=== PATIENT | male | born 1980 | race Caucasian/White ===

== ENCOUNTER 2019-03-21 15:28 | Emergency (ER) | payer OTHER ==
[2019-03-21] MEDS ORDERED: NA CHLORIDE 0.9% 1,000 ML ONE (16:50)
[2019-03-21 16:57] LABS: Absolute Lymphocytes (CBC) 1.2 K/uL (0.7-4.9); Absolute Monocytes 1.4 K/uL (0.1-1.3); Absolute Neutrophil 5.1 K/uL (1.8-8.0); Basophils % 0.6 % (0-1.3); Eosinophils % 1.3 % (0-4.4); Hematocrit 45.7 % (39.6-49.0); Lymphocytes % 15.6 % (15.3-44.8); MPV 9.3 fL (7.6-11.3); Monocytes % 17.5 % (3.3-12.3); RBC Red Blood Cell Count 4.99 M/uL (4.33-5.43)
[2019-03-21 17:10] LABS: ALT/SGPT 25 U/L (12-78); AST/SGOT 26 U/L (15-37); Albumin 3.6 g/dL (3.4-5.0); Alkaline Phosphatase 72 U/L (45-117); BUN Blood Urea Nitrogen 17 mg/dL (7-18); Bicarbonate 26 mmol/L (21-32); Bilirubin Direct < 0.1 mg/dL (0-0.2); Bilirubin Total 0.4 mg/dL (0.2-1.0); Glucose Level 89 mg/dL (74-106); Lipase 106 U/L (73-393); Potassium 3.9 mmol/L (3.5-5.1); Sodium Level 139 mmol/L (136-145)
[2019-03-21 17:34] LABS: Urine Blood NEGATIVE (NEG); Urine Glucose NEGATIVE (NEG); Urine Protein 1+ (NEG); Urine Specific Gravity 1.025 (1.005-1.030); Urine pH 5.5 (5.0-7.0)
[2019-03-21] MEDS ORDERED: KETOROLAC 30 MG/ML INJ ONE (17:35)
[2019-03-21 17:43] LABS: Calcium Oxalate Crystals- Ur FEW (NONE SEEN); Urine Bacteria <20 /HPF (NONE SEEN); Urine Culture Reflex Order NOT NEEDED; Urine Mucus 1+ /HPF (NONE SEEN); Urine RBC NONE SEEN /HPF (NONE SEEN)
--- NOTE | 2019-03-21 18:23 | RAD REPORT ---
EXAM DESCRIPTION: CTAbdomen Pelvis W Contrast - 03/21/2019 6:11 pm CLINICAL HISTORY: Abdominal pain. ABD PAIN COMPARISON: No comparisons TECHNIQUE: Biphasic CT imaging of the abdomen and pelvis was performed with 100 ml non-ionic IV cont rast. All CT scans are performed using dose optimization technique as appropriate and may include automated exposure control or mA/KV adjustment according to patient size. FINDINGS: The lung bases are clear. The liver, spleen, pancreas, adrenal glands and kidneys are within normal limits. No bowel obstruction, free air, free fluid or abscess. Moderate wall thickening and inflammatory yepez ges involve the colon, particularly the cecum and ascending colon. No pneumatosis. Appendectomy. No evidence of significant lymphadenopathy. Hardware is present in the lumbar spine with postoperative changes. IMPRESSION: Moderate right-sided colitis.
--- NOTE | 2019-03-21 19:05 | EDPHYS ---
Physician Documentation [facility] Name: Shade Barth Jr Age: 38 yrs Sex: Male : 1980 Arrival Date: 03/21/2019 Time: 15:31 Bed 13 Private MD: ED Physician Desean Guthrie HPI: 03/21 16:41 This 38 yrs old Male presents to ER via Ambulatory with complaints of pm1 Abdominal Pain. 16:41 The patient presents with abdominal pain Suprapubic area. Onset: The symptoms/episode pm1 began/occurred 3 day(s) ago. The symptoms do not radiate. Associated signs and symptoms: Pertinent positives: subjective fever resolved , Pertinent negatives: nausea, vomiting, and diarrhea, chest pain, dysuria, shortness of breath, testicular pain. The symptoms are described as crampy. Modifying factors: The symptoms are alleviated by nothing, the symptoms are aggravated by nothing. Severity of pain: in the emergency department the pain has resolved. The patient has not experienced similar symptoms in the past. The patient has not recently seen a physician. Historical: - Allergies: 15:33 Morphine; hj - PMHx: 15:33 Hypertension; hj - PSHx: 15:33 spine surgery; hand surgery; Appendectomy; hj - Immunization history:: Adult Immunizations unknown. - Social history:: Smoking status: unknown. - Ebola Screening: : No symptoms or risks identified at this time. ROS: 16:41 Constitutional: Negative for fever, chills, and weight loss, Eyes: Negative for injury, pm1 pain, redness, and discharge, ENT: Negative for injury, pain, and discharge, Neck: Negative for injury, pain, and swelling, Cardiovascular: Negative for chest pain, palpitations, and edema, Respiratory: Negative for shortness of breath, cough, wheezing, and pleuritic chest pain. 16:41 Back: Negative for injury and pain, : Negative for injury, bleeding, discharge, and swelling, MS/Extremity: Negative for injury and deformity, Skin: Negative for injury, rash, and discoloration, Neuro: Negative for headache, weakness, numbness, tingling, and seizure. 16:41 Abdomen/GI: Positive for abdominal pain, Negative for nausea, vomiting, and diarrhea, constipation. Exam: 16:41 Constitutional: This is a well developed, well nourished patient who is awake, alert, pm1 and in no acute distress. Head/Face: Normocephalic, atraumatic. Eyes: Pupils equal round and reactive to light, extra-ocular motions intact. Lids and lashes normal. Conjunctiva and sclera are non-icteric and not injected. Cornea within normal limits. Periorbital areas with no swelling, redness, or edema. ENT: Nares patent. No nasal discharge, no septal abnormalities noted. Tympanic membranes are normal and external auditory canals are clear. Oropharynx with no redness, swelling, or masses, exudates, or evidence of obstruction, uvula midline. Mucous membranes moist. Neck: Trachea midline, no thyromegaly or masses palpated, and no cervical lymphadenopathy. Supple, full range of motion without nuchal rigidity, or vertebral point tenderness. No Meningismus. Chest/axilla: Normal chest wall appearance and motion. Nontender with no deformity. No lesions are appreciated. Cardiovascular: Regular rate and rhythm with a normal S1 and S2. No gallops, murmurs, or rubs. Normal PMI, no JVD. No pulse deficits. Respiratory: Lungs have equal breath sounds bilaterally, clear to auscultation and percussion. No rales, rhonchi or wheezes noted. No increased work of breathing, no retractions or nasal flaring. 16:41 Back: No spinal tenderness. No costovertebral tenderness. Full range of motion. Skin: Warm, dry with normal turgor. Normal color with no rashes, no lesions, and no evidence of cellulitis. MS/ Extremity: Pulses equal, no cyanosis. Neurovascular intact. Full, normal range of motion. 16:41 Abdomen/GI: Inspection: abdomen appears normal, Bowel sounds: normal, Palpation: abdomen is soft and non-tender, in all quadrants, mass, is not appreciated, rebound tenderness, is not appreciated. 16:41 Neuro: Orientation: is normal, Motor: is normal, moves all fours, Sensation: is normal, no obvious gross deficits, Gait: is steady, at a normal pace, without difficulty. Vital Signs: 15:33 BP 139 / 89; Pulse 95; Resp 18; Temp 98.2(TE); Pulse Ox 95% on R/A; Weight 101.15 kg; hj Height 6 ft. 1 in. (185.42 cm); Pain 10/10; 17:17 BP 120 / 72; Pulse 86; Resp 17; Pulse Ox 98% on R/A; sg 17:37 BP 117 / 77; Pulse 74; Resp 18; Temp 98.2; Pulse Ox 100% on R/A; sg 19:40 BP 113 / 75; Pulse 80; Resp 18; Temp 98; Pulse Ox 99% ; rv 15:33 Body Mass Index 29.42 (101.15 kg, 185.42 cm) hj MDM: 16:14 Patient medically screened. pm1 17:15 Data reviewed: vital signs. Data interpreted: Pulse oximetry: on room air is 95 %. pm1 Interpretation: normal. 19:03 Counseling: I had a detailed discussion with the patient and/or guardian regarding: the pm1 historical points, exam findings, and any diagnostic results supporting the discharge/admit diagnosis, lab results, radiology results, the need for outpatient follow up, to return to the emergency department if symptoms worsen or persist or if there are any questions or concerns that arise at home. 03/21 16:35 Order name: Basic Metabolic Panel; Complete Time: 17:11 pm1 03/21 16:35 Order name: CBC with Diff; Complete Time: 17:11 pm1 03/21 16:35 Order name: Creatinine for Radiology; Complete Time: 17:11 pm1 03/21 16:35 Order name: Hepatic Function; Complete Time: 17:11 pm1 03/21 16:35 Order name: Lipase; Complete Time: 17:11 pm1 03/21 16:35 Order name: Urine Microscopic Only; Complete Time: 17:44 pm03/21 16:35 Order name: CT Abd/Pelvis - W/Contrast; Complete Time: 18:40 pm1 03/21 17:21 Order name: Urine Dipstick--Ancillary (enter results); Complete Time: 17:44 eb 03/21 16:35 Order name: IV Saline Lock; Complete Time: 16:51 pm1 03/21 16:35 Order name: Labs collected and sent; Complete Time: 16:52 pm1 03/21 16:35 Order name: Urine Dipstick-Ancillary (obtain specimen); Complete Time: 16:52 pm1 Administered Medications: 16:56 Drug: NS 0.9% 1000 ml Route: IV; Rate: 1000 ml; Site: right antecubital; sg 17:50 Follow up: Response: No adverse reaction; IV Status: Completed infusion sg 17:22 Drug: TORadol 30 mg Route: IVP; Site: right antecubital; sg 17:55 Follow up: Response: No adverse reaction; Pain is unchanged, physician notified sg 19:10 Drug: Cipro 500 mg Route: PO; sg 19:42 Follow up: Response: No adverse reaction rv 19:10 Drug: Flagyl 500 mg Volume: 100 ml; Route: IVPB; Rate: 200 ml/hr; Infused Over: 30 sg mins; Site: right antecubital; 19:42 Follow up: IV Status: Completed infusion; IV Intake: 100ml rv 19:15 Drug: Bentyl 20 mg Route: PO; sg 19:43 Follow up: Response: No adverse reaction rv 19:19 Drug: fentaNYL (PF) 50 mcg Route: IVP; Site: right antecubital; sg 19:43 Follow up: Response: Pain is decreased rv Disposition: 03/22 11:57 Co-signature as Attending Physician, Desean Guthrie MD. Disposition: 03/21/19 19:04 Discharged to Home. Impression: Colitis. - Condition is Stable. - Discharge Instructions: Colitis. - Prescriptions for Flagyl 500 mg Oral Tablet - take 1 tablet by ORAL route every 8 hours for 10 days; 30 tablet. Cipro 500 mg Oral Tablet - take 1 tablet by ORAL route every 12 hours for 10 days; 20 tablet. Bentyl 20 mg Oral Tablet - take 1 tablet by ORAL route every 6 hours As needed; 20 tablet. - Medication Reconciliation Form, Thank You Letter, Antibiotic Education, Prescription Opioid Use form. - Follow up: Emergency Department; When: As needed; Reason: Worsening of condition. Follow up: Private Physician; When: 2 - 3 days; Reason: Recheck today's complaints, Continuance of care, Re-evaluation by your physician. - Problem is new. - Symptoms have improved. Signatures: Dispatcher [employer] EDMS Stephan Farley RN RN Selvin Wong RN RN Luis M Nicholson, MOTOR VEHICLE EXAMINER MOTOR VEHICLE EXAMINER pm1 Desean Guthrie MD MD William Cox RN RN rv Corrections: (The following items were deleted from the chart) 03/21 19:44 19:04 03/21/2019 19:04 Discharged to Home. Impression: Colitis. Condition is Stable. rv Forms are Medication Reconciliation Form, Thank You Letter, Antibiotic Education, Prescription Opioid Use. Follow up: Emergency Department; When: As needed; Reason: Worsening of condition. Follow up: Private Physician; When: 2 - 3 days; Reason: Recheck today's complaints, Continuance of care, Re-evaluation by your physician. Problem is new. Symptoms have improved. pm1
--- NOTE | 2019-03-21 19:05 | ER ---
Nurse's Notes [facility] Name: Shade Barth Jr Age: 38 yrs Sex: Male : 1980 Arrival Date: 03/21/2019 Time: 15:31 Bed 13 Private MD: Diagnosis: Colitis Presentation: 03/21 15:31 Presenting complaint: Patient states: hardy been having abd pain for 3 days now hj (suprapubic area); denies N/V; reports diarrhea; reports fever and chills;. Transition of care: patient was not received from another setting of care. Onset of symptoms was March 21, 2019. Risk Assessment: Do you want to hurt yourself or someone else? Patient reports no desire to harm self or others. Initial Sepsis Screen: Does the patient meet any 2 criteria? No. Patient's initial sepsis screen is negative. Does the patient have a suspected source of infection? No. Patient's initial sepsis screen is negative. Care prior to arrival: None. 15:31 Method Of Arrival: Ambulatory 15:31 Acuity: TESS 3 hj Historical: - Allergies: 15:33 Morphine; hj - PMHx: 15:33 Hypertension; hj - PSHx: 15:33 spine surgery; hand surgery; Appendectomy; hj - Immunization history:: Adult Immunizations unknown. - Social history:: Smoking status: unknown. - Ebola Screening: : No symptoms or risks identified at this time. Screenin:30 Abuse screen: Denies threats or abuse. Denies injuries from another. Nutritional sg screening: No deficits noted. Tuberculosis screening: No symptoms or risk factors identified. Never had TB. Fall Risk None identified. Assessment: 16:30 General: Appears in no apparent distress. uncomfortable, well groomed, well developed, sg well nourished, Behavior is calm, cooperative, appropriate for age. Pain: Complains of pain in abdomen Quality of pain is described as aching. Neuro: Level of Consciousness is awake, alert, obeys commands, Oriented to person, place, time, Speech is normal, Facial symmetry appears normal. Cardiovascular: Patient's skin is warm and dry. Respiratory: Airway is patent Respiratory effort is even, unlabored, Respiratory pattern is regular, symmetrical. GI: Abdomen is round obese, Bowel sounds present X 4 quads. Abd is soft and non tender X 4 quads. : No signs and/or symptoms were reported regarding the genitourinary system. EENT: No signs and/or symptoms were reported regarding the EENT system. Derm: Skin is pink, warm \T\ dry. Musculoskeletal: No signs and/or symptoms reported regarding the musculoskeletal system. 17:40 Reassessment: Patient appears in no apparent distress at this time. Patient and/or sg family updated on plan of care and expected duration. Pain level reassessed. Patient is alert, oriented x 3, equal unlabored respirations, skin warm/dry/pink. 18:40 Reassessment: Patient appears in no apparent distress at this time. Patient and/or sg family updated on plan of care and expected duration. Pain level reassessed. Patient is alert, oriented x 3, equal unlabored respirations, skin warm/dry/pink. Vital Signs: 15:33 BP 139 / 89; Pulse 95; Resp 18; Temp 98.2(TE); Pulse Ox 95% on R/A; Weight 101.15 kg; hj Height 6 ft. 1 in. (185.42 cm); Pain 10/10; 17:17 BP 120 / 72; Pulse 86; Resp 17; Pulse Ox 98% on R/A; sg 17:37 BP 117 / 77; Pulse 74; Resp 18; Temp 98.2; Pulse Ox 100% on R/A; sg 19:40 BP 113 / 75; Pulse 80; Resp 18; Temp 98; Pulse Ox 99% ; rv 15:33 Body Mass Index 29.42 (101.15 kg, 185.42 cm) ED Course: 15:31 Patient arrived in ED. hj 15:32 Triage completed. hj 15:34 Arm band placed on right wrist. hj 16:14 Luis M Nicholson NP is PHCP. pm1 16:14 Desean Guthrie MD is Attending Physician. pm1 16:27 Stephan Farley, DEBORAH is Primary Nurse. sg 16:40 Urine collected: clean catch specimen, checo colored. dh3 16:43 Initial lab(s) drawn, by ut, sent to lab. Inserted saline lock: 20 gauge in right dh3 forearm, using aseptic technique. Blood collected. 18:11 CT Abd/Pelvis - W/Contrast In Process Unspecified. EDMS 18:16 Patient [address] back from CT. sg 19:00 Patient has correct armband on for positive identification. Bed in low position. Call rv light in reach. Side rails up X 1. Pulse ox on. NIBP on. 19:41 No provider procedures requiring assistance completed. IV discontinued, intact, rv bleeding controlled, No redness/swelling at site. Pressure dressing applied. Administered Medications: 16:56 Drug: NS 0.9% 1000 ml Route: IV; Rate: 1000 ml; Site: right antecubital; sg 17:50 Follow up: Response: No adverse reaction; IV Status: Completed infusion sg 17:22 Drug: TORadol 30 mg Route: IVP; Site: right antecubital; sg 17:55 Follow up: Response: No adverse reaction; Pain is unchanged, physician notified sg 19:10 Drug: Cipro 500 mg Route: PO; sg 19:42 Follow up: Response: No adverse reaction rv 19:10 Drug: Flagyl 500 mg Volume: 100 ml; Route: IVPB; Rate: 200 ml/hr; Infused Over: 30 sg mins; Site: right antecubital; 19:42 Follow up: IV Status: Completed infusion; IV Intake: 100ml rv 19:15 Drug: Bentyl 20 mg Route: PO; sg 19:43 Follow up: Response: No adverse reaction rv 19:19 Drug: fentaNYL (PF) 50 mcg Route: IVP; Site: right antecubital; sg 19:43 Follow up: Response: Pain is decreased rv Intake: 19:42 IV: 100ml; Total: 100ml. rv Outcome: 19:04 Discharge ordered by MD. pm1 19:42 Discharged to home ambulatory. rv 19:42 Condition: good 19:42 Discharge instructions given to patient, family, Instructed on discharge instructions, follow up and referral plans. medication usage, Demonstrated understanding of instructions, follow-up care, medications, Prescriptions given X 3. 19:44 Patient left the ED. rv Signatures: Dispatcher [employer] EDMS Stephan Farley RN RN Selvin Wong RN RN hj Luis M Nicholson NP ROTARY ENGRAVER pm1 Taylor Hurst 3 William Cox RN RN rv Corrections: (The following items were deleted from the chart) 15:35 15:33 Pulse 95bpm; Resp 18bpm; Pulse Ox 95% RA; Temp 98.2F Temporal; 101.15 kg; Height hj 6 ft. 1 in.; BMI: 29.4; Pain 10/10; hj
[2019-03-21] MEDS ORDERED: CIPROFLOXACIN HCL 500 MG TAB ONE (19:12)
[2019-03-21] MEDS ORDERED: DICYCLOMINE HCL 10 MG CAP ONE (19:12)
[2019-03-21] MEDS ORDERED: METRONIDAZOLE 500mg IVPB 500 MG/100 ML BAG IV ONE (19:12)
[2019-03-21] MEDS ORDERED: FENTANYL CITR 100 MCG/2 ML ONE (19:24)
== END 2019-03-21 19:44 | disposition home or self-care (01) ==
LOC: ER 15:28
DX: K52.9 Noninfective gastroenteritis and colitis, unspecified (principal); Z88.6 Allergy status to analgesic agent
CPT/HCPCS: 36415; 74177; 80048; 80076; 81003; 81015; 83690; 85025; 96361; 96365; 96375; 99284; J3010; J7030; Q9967

== ENCOUNTER 2021-05-16 21:33 | Emergency (ER) | payer OTHER, BC ==
--- OUTSIDE RECORDS SUMMARY | 2021-05-16 21:36 | XMS REPORT | Continuity of Care Document ---
:1980 Author Organization [facility] t Address [address] [place] [address] Dr. Peters [address] [place] [id number] Care Team Providers Name Role Phone Wyatt Burns Attending Clinician Problems This patient has no known problems. Allergies, Adverse Reactions, Alerts This patient has no known allergies or adverse reactions. Medications This patient has no known medications. Procedures This patient has no known procedures. Encounters Start End Encounter Admission Attending Care Care Encounter Source Date/Time Date/Time Type Type Clinicians Facility Department ID 2021-01-22 2021-01-22 Emergency Tye [facility] [id number] 18:16:00 22:10:00 Yuval Michelle [id number] [place] [id number] [place] [id number] Results This patient has no known results.
[2021-05-16 22:31] LABS: Basophils % 0.7 % (0-1.3); Hematocrit 39.7 % (39.6-49.0); Lymphocytes % 16.8 % (15.3-44.8); MPV 9.3 fL (7.6-11.3); RBC Red Blood Cell Count 4.37 M/uL (4.33-5.43)
[2021-05-16] MEDS ORDERED: HYDROMORPHONE HCL 1 MG/ML INJ ONE (22:52)
[2021-05-16] MEDS ORDERED: NA CHLORIDE 0.9% 1,000 ML ONE (22:52)
[2021-05-16] MEDS ORDERED: ONDANSETRON 4 MG/2 ML VIAL ONE (22:52)
[2021-05-16 22:57] LABS: ALT/SGPT 43 U/L (12-78); AST/SGOT 40 U/L (15-37); Albumin 3.1 g/dL (3.4-5.0); Alkaline Phosphatase 74 U/L (45-117); BUN Blood Urea Nitrogen 13 mg/dL (7-18); Bicarbonate 28 mmol/L (21-32); Bilirubin Direct < 0.1 mg/dL (0-0.2); Bilirubin Total 0.3 mg/dL (0.2-1.0); Glucose Level 111 mg/dL (74-106); Potassium 3.7 mmol/L (3.5-5.1); Protein, Total 6.4 g/dL (6.4-8.2); Sodium Level 139 mmol/L (136-145)
[2021-05-16 22:58] LABS: Protime INR 1.01
[2021-05-16 23:00] LABS: Urine Blood Negative (Negative); Urine Glucose Negative (Negative); Urine Protein Negative (Negative)
[2021-05-16 23:46] LABS: Blood Morphology Comment NOT SEEN (NOT SEEN); Platelet Estimate ADEQ
[2021-05-17] MEDS ORDERED: FENTANYL CITR 100 MCG/2 ML ONE (00:33)
--- NOTE | 2021-05-17 02:08 | EDPHYS ---
Physician Documentation [facility] Name: Shade Barth Jr Age: 41 yrs Sex: Male : 1980 Arrival Date: 05/16/2021 Time: 21:34 Bed 14 Private MD: ED Physician Jesse Naranjo HPI: 05/16 22:31 This 41 yrs old Male presents to ER via Wheelchair with complaints of Fever, mh7 Incisional Pain. 22:32 Patient presents to ED for recheck of: Pain at surgical site. The affected area is on mh7 the left hip. Previous treatment: The patient was initially treated 2 day(s) ago, the care was rendered at outside hospital, Treatment type: The patient's original treatment included sacral fusion surgery. Outpatient prescription(s): The patient was given prescription(s) for hydrocodone, Fentanyl Patch. Progress: The patient reports increased fever, redness. Historical: - Allergies: 21:43 Morphine; ca1 21:43 Sulfa (Sulfonamide Antibiotics); ca1 - PMHx: 21:43 Hypertension; ca1 - Immunization history:: Client reports receiving the 2nd dose of the Covid vaccine, Client reports receiving the 1st dose of the Covid vaccine, Flu vaccine is up to date. - Social history:: Smoking status: Reported history of juuling and/or vaping. ROS: 22:32 Eyes: Negative for injury, pain, redness, and discharge, ENT: Negative for injury, mh7 pain, and discharge, Neck: Negative for injury, pain, and swelling, Cardiovascular: Negative for chest pain, palpitations, and edema, Respiratory: Negative for shortness of breath, cough, wheezing, and pleuritic chest pain, Abdomen/GI: Negative for abdominal pain, nausea, vomiting, diarrhea, and constipation, Back: Negative for injury and pain, : Negative for injury, bleeding, discharge, and swelling, Neuro: Negative for headache, weakness, numbness, tingling, and seizure, Psych: Negative for depression, anxiety, suicide ideation, homicidal ideation, and hallucinations, Allergy/Immunology: Negative for hives, rash, and allergies, Endocrine: Negative for neck swelling, polydipsia, polyuria, polyphagia, and marked weight changes, Hematologic/Lymphatic: Negative for swollen nodes, abnormal bleeding, and unusual bruising. Exam: 22:32 Constitutional: This is a well developed, well nourished patient who is awake, alert, mh7 and in no acute distress. Head/Face: Normocephalic, atraumatic. Eyes: Pupils equal round and reactive to light, extra-ocular motions intact. Lids and lashes normal. Conjunctiva and sclera are non-icteric and not injected. Cornea within normal limits. Periorbital areas with no swelling, redness, or edema. Neck: Trachea midline, no thyromegaly or masses palpated, and no cervical lymphadenopathy. Supple, full range of motion without nuchal rigidity, or vertebral point tenderness. No Meningismus. Chest/axilla: Normal chest wall appearance and motion. Nontender with no deformity. No lesions are appreciated. 22:32 Respiratory: Lungs have equal breath sounds bilaterally, clear to auscultation and percussion. No rales, rhonchi or wheezes noted. No increased work of breathing, no retractions or nasal flaring. Abdomen/GI: Soft, non-tender, with normal bowel sounds. No distension or tympany. No guarding or rebound. No evidence of tenderness throughout. Neuro: Awake and alert, GCS 15, oriented to person, place, time, and situation. Cranial nerves II-XII grossly intact. Motor strength 5/5 in all extremities. Sensory grossly intact. Cerebellar exam normal. Normal gait. Psych: Awake, alert, with orientation to person, place and time. Behavior, mood, and affect are within normal limits. 22:32 Cardiovascular: Rate: tachycardic, Rhythm: regular, Pulses: no pulse deficits are appreciated, Heart sounds: normal, normal S1and S2, Edema: is not appreciated, JVD: is not appreciated. 22:32 Musculoskeletal/extremity: Extremities: noted in the left hip and buttock: ecchymosis, mh7 pain, tenderness, ROM: intact in all extremities, Circulation is intact in all extremities. Sensation intact. Compartment Syndrome exam of affected extremity: is normal. no numbness, no tingling, no sensation deficit, no palor, no weak pulses, Joints: the left hip displays tenderness, ecchymosis, Weight bearing: able to fully bear weight, without difficulty, Tendon exam: specific tendon testing normal through active and passive range of motion DVT Exam: no pain, no swelling, no tenderness, negative Homans' sign noted on exam, no appreciated bluish discoloration, no erythema, no increased warmth, Calves: are non-tender, have equal circumference. 05/17 02:10 Musculoskeletal/extremity: Surgical wound is clean,dry, intact. No erythema, swelling, mh7 discharge.. Vital Signs: 05/16 21:41 BP 154 / 89; Pulse 117; Resp 20; Temp 99.5(O); Pulse Ox 95% on R/A; Weight 106.14 kg ca1 (R); Height 6 ft. 1 in. (185.42 cm) (R); Pain 7/10; 22:45 BP 118 / 68; Pulse 91; Resp 16; Pulse Ox 96% on R/A; jb4 05/17 00:00 BP 124 / 77; Pulse 0; Resp 18; Pulse Ox 97% on R/A; jb4 01:00 BP 108 / 64; Pulse 78; Resp 16; Pulse Ox 96% on R/A; jb4 02:00 BP 119 / 59; Pulse 93; Resp 17; Pulse Ox 97% on R/A; jb4 05/16 21:41 Body Mass Index 30.87 (106.14 kg, 185.42 cm) ca1 MDM: 05/16 22:32 Counseling: I had a detailed discussion with the patient and/or guardian regarding: the [facility] historical points, exam findings, and any diagnostic results supporting the discharge/admit diagnosis, the presence of at least one elevated blood pressure reading (>120/80) during this emergency department visit, lab results, radiology results, the need for outpatient follow up, to return to the emergency department if symptoms worsen or persist or if there are any questions or concerns that arise at home. Response to treatment: the patient's symptoms have resolved after treatment, the patient's blood pressure is in an acceptable range, mental status has returned to baseline, the patient no longer shows bradycardia, the patient is not short of breath, the patient is not tachycardic, the patient's pain is gone, the patient's temperature has normalized. 05/17 02:03 Differential diagnosis: cellulitis, post surgical pain, abscess, post operative mh7 infection. Data reviewed: vital signs, nurses notes, lab test result(s), CBC, electrolytes, urinalysis, radiologic studies, CT scan, plain films. 02:08 Patient medically screened. [facility] 05/16 22:16 Order name: CBC with Diff [facility] 05/16 22:16 Order name: Basic Metabolic Panel [facility] 05/16 22:16 Order name: LFT's [facility] 05/16 22:16 Order name: Protime (+inr); Complete Time: 23:06 [facility] 05/16 22:16 Order name: Ptt, Activated; Complete Time: 23:06 [facility] 05/16 22:16 Order name: Lactate; Complete Time: 23:53 [facility] 05/16 22:16 Order name: Blood Culture Adult (2) [facility] 05/16 22:16 Order name: Chest Single View XRAY [facility] 05/16 22:16 Order name: CBC with Automated Diff; Complete Time: 23:53 [facility] 05/16 22:17 Order name: Basic Metabolic Panel; Complete Time: 23:06 [facility] 05/16 22:17 Order name: Liver (Hepatic) Function; Complete Time: 23:06 [facility] 05/16 22:55 Order name: Manual Differential; Complete Time: 23:53 [facility] 23:00 Order name: Urine Dipstick-Ancillary; Complete Time: 23:06 [facility] 05/16 22:16 Order name: Urine Dipstick-Ancillary (obtain specimen); Complete Time: 23:00 [facility] 05/17 00:39 Order name: Pelvis W/Cont EDMS Administered Medications: 05/16 22:42 Drug: NS 0.9% 1000 ml Route: IV; Rate: 1000 ml; Site: right antecubital; [facility] 23:25 Follow up: Response: No adverse reaction; IV Status: Completed infusion; IV Intake: jb4 1000ml 22:45 Drug: Zofran (Ondansetron) 4 mg Route: IVP; Site: right forearm; jb4 23:15 Follow up: Response: No adverse reaction; Marked relief of symptoms jb4 22:46 Drug: Dilaudid (HYDROmorphone) 1 mg Route: IVP; Site: right forearm; jb4 23:15 Follow up: Response: No adverse reaction; Pain is decreased; RASS: Alert and Calm (0) [facility] 05/17 00:15 Drug: fentaNYL (PF) 50 mcg Route: IVP; Site: right forearm; jb4 00:45 Follow up: Response: No adverse reaction; Marked relief of symptoms; Pain is decreased; 4 RASS: Alert and Calm (0) Disposition Summary: 05/17/21 02:08 Discharge Ordered Location: Home [facility] Problem: new [facility] Symptoms: have improved mh Condition: Stable mh7 Diagnosis - Post Operative Pain [facility] Followup: [facility] - With: Private Physician - When: 1 - 2 days - Reason: Worsening of condition, Recheck today's complaints, Continuance of care, Re-evaluation by your physician Discharge Instructions: - Discharge Summary Sheet [facility] - Wound Care, Adult [facility] Forms: - Medication Reconciliation Form [facility] - Thank You Letter [facility] - Antibiotic Education [facility] - Prescription Opioid Use [facility] Signatures: Dispatcher [employer] EDMO Colby Johnson RN RN jb4 Madeline Aly RN RN ca1 Jesse Naranjo MD MD mh7 Corrections: (The following items were deleted from the chart) 05/16 23:13 23:08 Spine Lumbar Wo Con+CT.RAD.BRZ ordered. EDMO EDMO 05/17 00:39 05/16 23:13 Spine Lumbar W/Cont ordered. EDMO EDMO 05/17 02:10 02:08 Fever, unspecified [place] [id number]
--- NOTE | 2021-05-17 02:08 | ER ---
Nurse's Notes [facility] Name: Shade Barth Jr Age: 41 yrs Sex: Male : 1980 Arrival Date: 05/16/2021 Time: 21:34 Bed 14 Private MD: Diagnosis: Post Operative Pain Presentation: 05/16 21:41 Chief complaint: Patient states: Sacral Fusion done Monday. Been having pain at the ca1 incision. Fever x this evening. Took pain meds with acetaminophen. Fever at home 101. Coronavirus screen: Client denies travel out of the [place] in the last 14 days. fever, Client presents with at least one sign or symptom that may indicate coronavirus-19. Standard/surgical mask placed on the client. Provider contacted for isolation considerations. Ebola Screen: Patient negative for fever greater than or equal to 101.5 degrees Fahrenheit, and additional compatible Ebola Virus Disease symptoms Patient denies exposure to infectious person. Patient denies travel to an Ebola-affected area in the 21 days before illness onset. No symptoms or risks identified at this time. Initial Sepsis Screen: Does the patient meet any 2 criteria? No. Patient's initial sepsis screen is negative. Does the patient have a suspected source of infection? No. Patient's initial sepsis screen is negative. Risk Assessment: Do you want to hurt yourself or someone else? Patient reports no desire to harm self or others. Onset of symptoms was May 16, 2021. 21:41 Method Of Arrival: Wheelchair ca1 21:41 Acuity: TESS 3 ca1 Historical: - Allergies: 21:43 Morphine; ca1 21:43 Sulfa (Sulfonamide Antibiotics); ca1 - PMHx: 21:43 Hypertension; ca1 - Immunization history:: Client reports receiving the 2nd dose of the Covid vaccine, Client reports receiving the 1st dose of the Covid vaccine, Flu vaccine is up to date. - Social history:: Smoking status: Reported history of juuling and/or vaping. Assessment: 22:00 General: Appears in no apparent distress. uncomfortable, Behavior is calm, cooperative, jb4 appropriate for age. Pain: Complains of pain in left low back Pain radiates to left hip Pain currently is 8 out of 10 on a pain scale. Neuro: Level of Consciousness is awake, alert, obeys commands, Oriented to person, place, time, situation. Cardiovascular: Patient's skin is warm and dry. Respiratory: Airway is patent Respiratory effort is even, unlabored, Respiratory pattern is regular, symmetrical. GI: No signs and/or symptoms were reported involving the gastrointestinal system. : No signs and/or symptoms were reported regarding the genitourinary system. EENT: No signs and/or symptoms were reported regarding the EENT system. Derm: Skin is intact, Skin is pink, warm \T\ dry. Musculoskeletal: Circulation, motion, and sensation intact. Range of motion: intact in all extremities. 23:30 Reassessment: Patient appears in no apparent distress at this time. Patient and/or jb4 family updated on plan of care and expected duration. Pain level reassessed. Patient is alert, oriented x 3, equal unlabored respirations, skin warm/dry/pink. Patient states symptoms have not improved. 05/17 00:45 Reassessment: Patient appears in no apparent distress at this time. Patient and/or jb4 family updated on plan of care and expected duration. Pain level reassessed. Patient is alert, oriented x 3, equal unlabored respirations, skin warm/dry/pink. Patient states feeling better. 02:14 Reassessment: Patient appears in no apparent distress at this time. Patient and/or jb4 family updated on plan of care and expected duration. Pain level reassessed. Patient is alert, oriented x 3, equal unlabored respirations, skin warm/dry/pink. Vital Signs: 05/16 21:41 BP 154 / 89; Pulse 117; Resp 20; Temp 99.5(O); Pulse Ox 95% on R/A; Weight 106.14 kg ca1 (R); Height 6 ft. 1 in. (185.42 cm) (R); Pain 7/10; 22:45 BP 118 / 68; Pulse 91; Resp 16; Pulse Ox 96% on R/A; jb4 05/17 00:00 BP 124 / 77; Pulse 0; Resp 18; Pulse Ox 97% on R/A; jb4 01:00 BP 108 / 64; Pulse 78; Resp 16; Pulse Ox 96% on R/A; jb4 02:00 BP 119 / 59; Pulse 93; Resp 17; Pulse Ox 97% on R/A; jb4 05/16 21:41 Body Mass Index 30.87 (106.14 kg, 185.42 cm) ca1 ED Course: 05/16 21:34 Patient arrived in ED. am4 21:43 Triage completed. ca1 21:43 Arm band placed on right wrist. ca1 21:54 Jesse Naranjo MD is Attending Physician. 7 22:25 Colby Johnson, RN is Primary Nurse. jb4 22:51 Chest Single View XRAY In Process Unspecified. EDMS 05/17 01:01 Pelvis W/Cont In Process Unspecified. EDMS Administered Medications: 05/16 22:42 Drug: NS 0.9% 1000 ml Route: IV; Rate: 1000 ml; Site: right antecubital; jb4 23:25 Follow up: Response: No adverse reaction; IV Status: Completed infusion; IV Intake: jb4 1000ml 22:45 Drug: Zofran (Ondansetron) 4 mg Route: IVP; Site: right forearm; jb4 23:15 Follow up: Response: No adverse reaction; Marked relief of symptoms jb4 22:46 Drug: Dilaudid (HYDROmorphone) 1 mg Route: IVP; Site: right forearm; jb4 23:15 Follow up: Response: No adverse reaction; Pain is decreased; RASS: Alert and Calm (0) jb4 05/17 00:15 Drug: fentaNYL (PF) 50 mcg Route: IVP; Site: right forearm; jb4 00:45 Follow up: Response: No adverse reaction; Marked relief of symptoms; Pain is decreased; jb4 RASS: Alert and Calm (0) Intake: 05/16 23:25 IV: 1000ml; Total: 1000ml. jb4 Outcome: 05/17 02:08 Discharge ordered by . [facility] 02:25 Patient left the ED. jb4 Signatures: Dispatcher [employer] EDMS Colby Johnson, DEBORAH CABRERA jb4 Madeline Aly RN RN ca1 Jesse Naranjo MD MD mh7 Martinez, Ashley 4
[2021-05-17 02:52] VITALS: TEMP 99.5
[2021-05-17 02:57] VITALS: BP 119/59; O2SAT 97
--- NOTE | 2021-05-17 08:36 | RAD REPORT ---
EXAM DESCRIPTION: RAD - Chest Single View - 05/16/2021 10:51 pm CLINICAL HISTORY: FEVER Chest pain. COMPARISON: No comparisons FINDINGS: Portable technique limits examination quality. Mild linear atelectasis suspected left lung base. The lungs are otherwise clear. The heart is normal in size. No displaced fractures.
--- NOTE | 2021-05-17 13:43 | RAD REPORT ---
EXAM DESCRIPTION: Pelvis W/Cont 05/17/2021 1:20 AM CDT CLINICAL HISTORY: 41 years, Male, s/p sacral fusion;Pain POST-OP COMPARISON: None. TECHNIQUE: Multiple transaxial tomograms of the pelvis were obtained utilizing 2 mm slice thickness at 2 mm interval reconstruction after the administration of IV contrast. 2-D multiplanar reformats in sagittal and coronal plane were generated and reviewed. This exam was performed according to our departmental dose-optimization protocol, which includes auto mated exposure control, adjustment of the mA and/or kV according to patient size and/or use of iterat hardy reconstruction technique. FINDINGS: The visualized portions of the large and small bowel demonstrate to be within normal limit s. There is minimal diverticulosis within the left site colon. The urinary bladder is unremarkable. T he prostate gland is normal. There is no evidence for pelvic lymphadenopathy and/or ascites. Small le ft inguinal hernia containing omentum. The visualized portions of the external genitalia demonstrate to be within normal limits. There is minimal haziness within the left lateral gluteal region perhaps suggesting the possibility of edema and/or cellulitis and/or prior trauma. Bone windows demonstrate no evidence for acute bony injuries. The pelvic bones, superior and inferior pubic, demonstrate to be normal. The hip joints, proximal aspect of the femurs demonstrate to be wit hin normal limits. Well-circumscribed tiny sclerotic lesion within the left femoral head correspondin g to most likely a bone island. There is status post posterior transpedicular fixation device with intervertebral disc cage at L5/S1 disc level. There are bilateral sacroiliac joint fusion with 3 anchoring screws bilaterally. There is no evidence for periosteal reaction. There is no evidence for significant lucencies. There is no tavon dence for abnormal areas of enhancement. IMPRESSION: Status post posterior transpedicular fixation device with intervertebral disc cage at L5 /S1 disc level. Bilateral sacroiliac joint fusion with 3 anchoring screws bilaterally. Minimal haziness within the left lateral gluteal region perhaps suggesting the possibility of edema a nd/or cellulitis and/or prior trauma. Small left inguinal hernia containing omentum. Electronically signed by: Gm Ramirez MD 05/17/2021 1:26 AM CDT Due to temporary technical issues with the PACS/Fluency reporting system, reports are being signed by the in house radiologist without review as a courtesy to ensure prompt reporting. The interpreting r adiologist is fully responsible for the content of the report.
== END 2021-05-17 02:25 | disposition home or self-care (01) ==
LOC: ER 21:33
DX: G89.18 Other acute postprocedural pain (principal); I10 Essential (primary) hypertension; Z88.2 Allergy status to sulfonamides; Z88.5 Allergy status to narcotic agent
CPT/HCPCS: 96361; 87040 ×2; 85025; 80048; 36415; 85610; 80076; 83605; 85730; 81003; 72193; 71045; 96375; 96374; 99283; Q9967; J3010; J1170; J7030; J2405

== ENCOUNTER 2022-02-22 16:36 | Emergency (ER) | payer BC, OTHER ==
--- OUTSIDE RECORDS SUMMARY | 2022-02-22 16:39 | XMS REPORT | Continuity of Care Document ---
:1980 Author Organization [facility] t Address [address] [place] [address] Dr. Peters [address] [place] [id number] Care Team Providers Name Role Phone Wyatt Burns Attending Clinician Wyatt CHARLTON Attending Clinician Unavailable Payers Payer Name Policy Type Policy Number Effective Date Expiration Date S ource Problems Condition Condition Condition Status Onset Resolution Last Treating Co mments Source Name Details Category Date Date Treatment Clinician Date No known No known Disease Unive rs active active ity of problems problems [facility] Allergies, Adverse Reactions, Alerts Allergy Allergy Status Severity Reaction(s) Onset Inactive Treating Comm ents Source Name Type Date Date Clinician Morphine Propensi Active Anaphylaxis 0 U nivers ty to - ity of adverse 00:00: [place] reaction 00 Medical s Branch Sulfa Propensi Active Unknown - 0 Unive rs Dyne ty to See comments 01-22 ity of adverse 00:00: [place] reaction 00 Medical s Branch MORPHINE DRUG Active Anaphylaxis 0 Uni vers INGREDI 01-22 ity of 00:00: [place] 00 Medical Branch SULFA DRUG Active Unknown-Cmnt 0 Univ ers DYNE - ity of 00:00: [place] 00 [facility] Social History Social Habit Start Date Stop Date Quantity Comments Source Exposure to Not sure [facility] SARS-CoV-2 (event) Medica l Branch Sex Assigned At [birth year] [facility] 00:00:00 00:00:00 Medical [place] Smoking Status Start Date Stop Date Source Unknown if ever smoked [facility] Medications Ordered Filled Start Stop Current Ordering Indication Dosage Frequency Signature Comments Components Source Medication Medication Date Date Medication? Clinician (SIG) Name Name clindamycin 2022020- No 600mg 600 mg, IV Univers (CLEOCIN) 01-23 Piggyback, ity of injection 03:15: 02:26 ONCE, 1 [place] 600 mg 00 :00 dose, Fri Medical 01/22/21 at Branch 2215, THUY
Re ason for Anti-Infec tive: Documented Infection< br>Documen domingo Infection Site: Skin / Soft Tissue
Duration of Therapy: 7 days
Re stricted use approved by: ED PROVIDER<b r>Indicati on for Clindamyci n use: abscess ondansetron 2020- No 4mg 4 mg, Slow Univers (ZOFRAN 01-23 IV Push, ity of (PF)) 03:00: 01:51 ONCE, 1 [place] injection 4 00 :00 dose, Fri Med ical mg 01/22/21 at Branch 2200, THUY FENTanyl PF 2020- No 50ug 50 mcg, Un josee (SUBLIMAZE 01-23 Slow IV ity o f (PF)) 01:51: 01:51 Push, [place] injection 00 :00 ONCE, 1 Medical 50 mcg dose, Fri [place] 01/22/21 at 2100, STAT iohexol 2020- No [id number] 120mL 120 mL, Univers (OMNIPAQUE 01-23 Intravenou it y of 350 01:15: 00:52 s, ONCE, 1 [place] BULK-150 00 :00 dose, Fri Medica l mL) 01/22/21 at [place] injection 2015, 120 mL Routine acetaminoph 2020- No 1000mg 1,000 mg, Univers en 01-23 Oral, ity of (TYLENOL) 00:45: 00:04 ONCE, 1 [place] tablet 00 :00 dose, Fri Medical 1,000 mg 01/22/21 at [facility] h 1945, Routine acetaminoph Yes [id number] 1{tbl} Take 1 Un josee en-codeine 01-22 tablet by ity of 300-30 mg 00:00: mouth [place] tablet 00 every 4 Medical (four) Branch hours as needed for Pain (scale 7-10). Indication s: acute pain clindamycin 2020- No [id number] 300mg Take 1 Univers 300 mg 01-22 capsule by ity of capsule 00:00: 04:59 mouth 4 [place] 00 :00 (four) Medical times [place] daily for 7 days. Vital Signs Vital Name Observation Time Observation Value Comments Source Systolic blood 2021-01-23 01:00:00 124 mm[Hg] Univer sity of pressure [facility] Diastolic blood 2021-01-23 01:00:00 68 mm[Hg] Unive rsity of [facility] Heart rate 2021-01-23 01:00:00 81 /min Universi [facility] Respiratory rate 2021-01-23 01:00:00 17 /min [facility] saturation in 2021-01-23 01:00:00 98 /min University of Arterial blood by [facility] Pulse oximetry Branch Body temperature 2021-01-22 23:14:00 36.72 Maureen [facility] Body weight 2021-01-22 23:14:00 102.513 kg [facility] Systolic blood 2021-01-23 01:00:00 124 mm[Hg] Univer sity of [facility] Diastolic blood 2021-01-23 01:00:00 68 mm[Hg] Unive rsity of [facility] Heart rate 2021-01-23 01:00:00 81 /min [facility] Respiratory rate 2021-01-23 01:00:00 17 /min [facility] Oxygen saturation in 2021-01-23 01:00:00 98 /min University of Arterial blood by [facility] Pulse oximetry Branch Body temperature 2021-01-22 23:14:00 36.72 Maureen [facility] ersity [facility] Body weight 2021-01-22 23:14:00 102.513 kg [facility] Procedures Procedure Date / Time Performed Performing Clinician Sour e INCISION AND DRAINAGE 2021-01-23 02:15:00 [facility]EL[facility]AST 2021-01-23 01:05:28 [facility] BASIC METABOLIC PANEL 2021-01-23 00:04:00 Yuval Charlton [facility] [place] (NA, K, CL, CO2, Medical Branch GLUCOSE, BUN, CREATININE, CA) CBC WITH DIFF 2021-01-23 00:04:00 Yuval Charlton [facility] NOTICE OF PRIVACY 2021-01-22 23:12:11 Doctor Unassigned, No [facility] Name Medical Branch CONSENT/REFUSAL FOR 2021-01-22 23:10:07 Doctor Unassigned, No [facility] [place] DIAGNOSIS AND Name Medical Branch TREATMENT CONSENT/REFUSAL FOR 2021-01-22 23:10:06 Doctor Unassigned, No [facility] [place] DIAGNOSIS AND Name Medical Branch TREATMENT Encounters Start End Encounter Admission Attending Care Care Encounter Source Date/Time Date/Time Type Type Clinicians Facility Department ID 2021-01-22 2021-01-22 Emergency [facility] [id number] [facility] 18:16:00 22:10:00 [id number] [id number] [place] [address] Branch 2021-01-22 2021-01-22 Emergency [facility] [id number] 18:16:00 22:10:00 Yuval Michelle [id number] [place] [id number] [place] [id number] 2021-01-22 2021-01-22 Emergency X [facility] ERT [id number] [facility] 18:16:00 18:16:00 General acute hospital Results Test Description Test Time Test Comments Results Result Comments Source BASIC METABOLIC PANEL (NA, K, CL, CO2, GLUCOSE, BUN, 2021-01 00:32:35 CREATININE, CA) Test Item Value Reference Range Interpretation Comme nts NA (test code = 8034297843) 139 mmol/L 135-145 K (test code = 0929637489) 4.0 mmol/L 3.5-5.0 CL (test code = 3080447582) 103 mmol/L 98-108 CO2 TOTAL (test code = 28 mmol/L 23-31 2620744759) AGAP (test code = 9349813595) 2-16 BUN (test code = 4989760151) 20 mg/dL 7-23 GLUCOSE (test code = 0639873039) 105 mg/dL 70-110 CREATININE (test code = 0.92 mg/dL 0.60-1.25 2584103409) CALCIUM (test code = 7700865146) 8.7 mg/dL 8.6-10.6 eGFR Calculation (Non- mL/min/1.73m2 Algerian) (test code = 7823491902) eGFR Calculation ( mL/min/1.73m2 Algerian) (test code = 0343462776) ANTONIETA (test code = ANTONIETA) Association of Glomerular Filtration Rate (GFR) and Staging of Kidney Disease* + +--------- + ----+| GFR (mL/min/1.73 m2) ?| With Kidney Damage ?| ?Without Kidney Damage+ +--- + +| ?>90 ?| ?Stage one ?| ? Normal ?+ +-------- + -----+| ?60-89 ?| ?Stage two ?| ? Decreased GFR ? + +--------- + ----+| ?30-59 ?| ?Stage three ?| ? Stage three ? + +--------- + ----+| ?15-29 ?| ?Stage four ? | ? Stage four ?+ +-------- + -----+| ?<15 (or dialysis) ? ?| ?Stage five ? | ? Stage five ?+ +-------- + -----+ *Each stage assumes the associated GFR level has been in effect for at least three months. ?Stages 1 to 5, with or without kidney disease, indicate chronic kidney disease. Notes: Determination of stages one and two (with eGFR >59mL/min/1.73 m2) requires estimation of kidney damage for at least three months as defined by structural or functional abnormalities of the kidney, manifested by either:Pathological abnormalities or Markers of kidney damage (including abnormalities in the composition of the blood or urine or abnormalities in imaging tests). [facility] WITH [id number] 00:21:54 Test Item Value Reference Range Interpretation Comments WBC (test code = See_Comment [Automated 6690-2) message] The sy stem which generated this result transmitted reference range : 4.20 - 10.70 10*3/?L. The reference range was not used to interpret this result as normal/abnormal . RBC (test code = See_Comment [Automated 789-8) message] The sy stem which generated this result transmitted reference range : 4.26 - 5.52 10*6/?L. The reference range was not used to interpret this result as normal/abnormal . HGB (test code = 14.6 g/dL 12.2-16.4 718-7) HCT (test code = 43.5 % 38.4-49.3 4544-3) MCV (test code = 92.6 fL 81.7-95.6 787-2) MCH (test code = 31.1 pg 26.1-32.7 785-6) MCHC (test code = 33.6 g/dL 31.2-35.0 786-4) RDW-SD (test code = 44.8 fL 38.5-51.6 71918-2) RDW-CV (test code = 13.1 % 12.1-15.4 788-0) PLT (test code = See_Comment [Automated 777-3) message] The sy stem which generated this result transmitted reference range : 150 - 328 10*3/ ?L. The reference r atif was not used to interpret this result as normal/abnormal . MPV (test code = 10.4 fL 9.8-13.0 91829-5) NRBC/100 WBC (test See_Comment [Automat ed code = 0653399055) message] The system which generated this result transmitted reference range : 0.0 - 10.0 /100 WBCs. The refer ence range was not u sed to interpret th is result as normal/abnormal . NRBC x10^3 (test code <0.01 See_Comment [Auto mated = 7275961445) message] The s ystem which generated this result transmitted reference range : 10*3/?L. The reference range was not used to interpret this result as normal/abnormal . GRAN MAT (NEUT) % 70.1 % (test code = 770-8) IMM GRAN % (test code 0.50 % = 5259124537) LYMPH % (test code = 16.0 % 736-9) MONO % (test code = 12.2 % 5905-5) EOS % (test code = 0.9 % 713-8) BASO % (test code = 0.3 % 706-2) GRAN MAT x10^3(ANC) 7.11 10*3/uL 1.99-6.95 H (test code = 8282190192) IMM GRAN x10^3 (test 0.05 10*3/uL 0.00-0.06 code = 7320136218) LYMPH x10^3 (test code 1.62 10*3/uL 1.09-3.23 = 731-0) MONO x10^3 (test code 1.24 10*3/uL 0.36-1.02 H = 742-7) EOS x10^3 (test code = 0.09 10*3/uL 0.06-0.53 711-2) BASO x10^3 (test code 0.03 10*3/uL 0.01-0.09 = 704-7) Lab Interpretation Abnormal (test code = 66886-0) [facility]"
[2022-02-22 17:55] LABS: Absolute Lymphocytes (CBC) 1.9 K/uL (0.7-4.9); Hematocrit 44.8 % (39.6-49.0); Lymphocytes % 26.7 % (15.3-44.8); MPV 9.1 fL (7.6-11.3); RBC Red Blood Cell Count 4.89 M/uL (4.33-5.43)
[2022-02-22 17:56] LABS: Protime INR 1.02
[2022-02-22 18:10] LABS: Magnesium 2.2 mg/dL (1.8-2.4)
[2022-02-22 18:16] LABS: Potassium 4.1 mmol/L (3.5-5.1); Troponin High Sensitivity 3.5 pg/mL (<58.9)
--- NOTE | 2022-02-22 18:47 | RAD REPORT ---
EXAM DESCRIPTION: RAD - Chest Single View - 02/22/2022 6:25 pm CLINICAL HISTORY: CHEST PAIN COMPARISON: Two view chest 01/17/2022 TECHNIQUE: AP portable chest image was obtained 02/22/2022 6:25 pm . FINDINGS: No new mass or consolidation. Interstitial markings are prominent but not clearly differen t when adjusting for technique differences. No significant failure or volume overload. A mild infiltr ate or reactive airway process could be masked by the chronic pattern. Heart and vasculature are normal. No measurable pleural effusion and no pneumothorax. No acute bony abnormality seen. No acute aortic findings suspected. IMPRESSION: No new focal lung parenchymal process seen. Baseline prominent interstitial pattern is stable but could potentially mask early edema, infiltrate or reactive airway process.
--- NOTE | 2022-02-22 19:27 | ER ---
Nurse's Notes [facility] Name: Shade Barth Jr Age: 41 yrs Sex: Male : 1980 Arrival Date: 02/22/2022 Time: 16:38 Bed 10 Private MD: Diagnosis: Chest pain, unspecified Presentation: 02/22 17:16 Chief complaint: Patient states: midsternal chest pain radiating to left shoulder since iw after lunch today, comes and goes 02/13. Coronavirus screen: At this time, the client does not indicate any symptoms associated with coronavirus-19. Ebola Screen: Patient negative for fever greater than or equal to 101.5 degrees Fahrenheit, and additional compatible Ebola Virus Disease symptoms Patient denies exposure to infectious person. Patient denies travel to an Ebola-affected area in the 21 days before illness onset. No symptoms or risks identified at this time. Initial Sepsis Screen: Does the patient meet any 2 criteria? No. Patient's initial sepsis screen is negative. Does the patient have a suspected source of infection? No. Patient's initial sepsis screen is negative. Risk Assessment: Do you want to hurt yourself or someone else? Patient reports no desire to harm self or others. Onset of symptoms was February 22, 2022. 17:16 Method Of Arrival: Ambulatory iw 17:16 Acuity: TESS 3 iw Historical: - Allergies: 17:17 Morphine; iw 17:17 Sulfa (Sulfonamide Antibiotics); iw - PMHx: 17:17 Hypertension; iw Assessment: 19:46 Reassessment: Patient is alert, oriented x 3, equal unlabored respirations, skin bb warm/dry/pink. pt seen by this RN at discharge, pt verbalized understanding of and agrees to plan of care discharge instructions given pt ambulated with steady gait to exit accompanied by family. Vital Signs: 18:14 BP 152 / 85; Pulse 53; Resp 17; Temp 97.9; Pulse Ox 97% on R/A; mh5 19:48 BP 133 / 80; Pulse 69; Resp 16 S; Temp 97.9(O); Pulse Ox 99% on R/A; bb ED Course: 16:38 Patient arrived in ED. as 17:16 Triage completed. iw 17:19 Luis M Nicholson NP is PHCP. pm1 17:19 Sara Wong MD is Attending Physician. pm1 17:41 Initial lab(s) drawn, by me, sent to lab. EKG done, by ED staff, reviewed by Luis M Nicholson NP. Inserted saline lock: 20 gauge in right forearm, using aseptic technique. Blood collected. 18:27 XRAY Chest (1 view) In Process Unspecified. EDMS 19:47 IV discontinued, intact, bleeding controlled, No redness/swelling at site. Pressure bb dressing applied. Administered Medications: No medications were administered Outcome: 19:26 Discharge ordered by . pm1 19:47 Discharged to home ambulatory, with family. bb 19:47 Condition: stable 19:47 Discharge instructions given to patient, Instructed on discharge instructions, follow up and referral plans. Demonstrated understanding of instructions, follow-up care. 19:48 Patient left the ED. bb Signatures: Dispatcher [employer] EDMS Cheri Beaulieu Brenda, RN RN bb Williams, Irene, RN RN iw Marinas, Patrick, NP TAX REPRESENTATIVE pm1 Yasmeen Beaulieu
--- NOTE | 2022-02-22 19:27 | EDPHYS ---
Physician Documentation [facility] Name: Shade Barth Jr Age: 41 yrs Sex: Male : 1980 Arrival Date: 02/22/2022 Time: 16:38 Bed 10 Private MD: ED Physician Sara Wong HPI: 02/22 17:17 This 41 yrs old Male presents to ER via Ambulatory with complaints of Chest Pain. pm1 17:17 The patient or guardian reports chest pain that is located primarily in the mid-sternal pm1 area. Onset: today. The pain does not radiate. Associated signs and symptoms: The patient has no apparent associated signs or symptoms. The chest pain is described as sharp. Duration: The patient or guardian reports multiple episodes, the episodes last approximately 4 second(s). Modifying factors: The symptoms are alleviated by nothing. the symptoms are aggravated by nothing. Severity of pain: in the emergency department the pain has resolved. The patient has experienced similar episodes in the past, several times. The patient has not recently seen a physician. Historical: - Allergies: 17:17 Morphine; iw 17:17 Sulfa (Sulfonamide Antibiotics); iw - PMHx: 17:17 Hypertension; iw ROS: 17:17 Constitutional: Negative for fever, chills, and weight loss. pm1 17:17 Respiratory: Negative for shortness of breath, cough, wheezing, and pleuritic chest pain, Abdomen/GI: Negative for abdominal pain, nausea, vomiting, diarrhea, and constipation, Back: Negative for injury and pain, MS/Extremity: Negative for injury and deformity, Skin: Negative for injury, rash, and discoloration, Neuro: Negative for headache, weakness, numbness, tingling, and seizure. 17:17 Cardiovascular: Positive for chest pain, palpitations, Negative for edema. 17:17 All other systems are negative. Exam: 17:17 Constitutional: This is a well developed, well nourished patient who is awake, alert, pm1 and in no acute distress. Head/Face: Normocephalic, atraumatic. 17:17 Abdomen/GI: Soft, non-tender, with normal bowel sounds. No distension or tympany. No guarding or rebound. No evidence of tenderness throughout. Back: No spinal tenderness. No costovertebral tenderness. Full range of motion. Skin: Warm, dry with normal turgor. Normal color with no rashes, no lesions, and no evidence of cellulitis. MS/ Extremity: Pulses equal, no cyanosis. Neurovascular intact. Full, normal range of motion. 17:17 Cardiovascular: Exam negative for acute changes, Rate: normal, Rhythm: regular, Pulses: no pulse deficits are appreciated, Heart sounds: normal. 17:17 Respiratory: Exam negative for acute changes, respiratory distress, shortness of breath, Breath sounds: are clear throughout. 17:17 Neuro: Exam negative for acute changes, Orientation: is normal, Mentation: is normal, Motor: is normal, moves all fours. Vital Signs: 18:14 BP 152 / 85; Pulse 53; Resp 17; Temp 97.9; Pulse Ox 97% on R/A; mh5 19:48 BP 133 / 80; Pulse 69; Resp 16 S; Temp 97.9(O); Pulse Ox 99% on R/A; bb MDM: 17:19 Patient medically screened. pm1 19:25 Data reviewed: vital signs. Data interpreted: Pulse oximetry: on room air is 97 %. pm1 Interpretation: normal. Counseling: I had a detailed discussion with the patient and/or guardian regarding: the historical points, exam findings, and any diagnostic results supporting the discharge/admit diagnosis, lab results, radiology results, the need for outpatient follow up, to return to the emergency department if symptoms worsen or persist or if there are any questions or concerns that arise at home. 19:25 ED course: Patient and aware of EKG findings, right bundle branch with pm1 bradycardia. They have been present since his time in the [employer]. 02/22 17:17 Order name: Basic Metabolic Panel; Complete Time: 18:21 iw 02/22 17:17 Order name: CBC with Diff; Complete Time: 17:59 iw 02/22 17:17 Order name: Troponin HS; Complete Time: 18:21 iw 02/22 17:38 Order name: Magnesium; Complete Time: 18:12 pm1 02/22 17:38 Order name: NT PRO-BNP; Complete Time: 18:12 pm1 02/22 17:38 Order name: PT-INR; Complete Time: 17:59 pm1 02/22 17:17 Order name: XRAY Chest (1 view); Complete Time: 19:13 iw 02/22 17:17 Order name: EKG; Complete Time: 17:18 iw 02/22 17:17 Order name: EKG - Nurse/Tech; Complete Time: 17:41 iw 02/22 17:17 Order name: IV Saline Lock; Complete Time: 17:41 iw 02/22 17:17 Order name: Labs collected and sent; Complete Time: 17:41 iw Administered Medications: No medications were administered Disposition Summary: 02/22/22 19:26 Discharge Ordered Location: Home pm1 Problem: new pm1 Symptoms: have improved pm1 Condition: Stable pm1 Diagnosis - Chest pain, unspecified pm1 Followup: pm1 - With: Emergency Department - When: As needed - Reason: Worsening of condition Followup: pm1 - With: Private Physician - When: 2 - 3 days - Reason: Recheck today's complaints, Continuance of care, Re-evaluation by your physician Discharge Instructions: - Discharge Summary Sheet pm1 - Nonspecific Chest Pain, Adult pm1 Forms: - Medication Reconciliation Form pm1 - Thank You Letter pm1 - Antibiotic Education pm1 - Prescription Opioid Use pm1 Addendum: 02/24/2022 18:40 Co-signature as Attending Physician, Sara Wong MD I agree with the assessment m a2 and plan of care. Signatures: Dispatcher [employer] Dunia Taylor, DEBORAH RN iw Luis M Nicholson, JOSE ENROUTE CONTROLLER pm1 Sara Wong MD MD ma2
[2022-02-22 23:39] VITALS: TEMP 97.9
[2022-02-22 23:41] VITALS: BP 133/80; O2SAT 99
--- NOTE | 2022-02-23 08:08 | EKG ---
Test Date: 2022-02-22 Test Time: 17:35:45 Guide Excursion: ZORAIDA MEASUREMENT RESULTS: Intervals: Rate: 59 SC: 170 QRSD: 114 QT: 426 QTc: 421 [place]: P: 54 SC: 170 QRS: 77 T: 68 INTERPRETIVE STATEMENTS: Sinus bradycardia with marked sinus arrhythmia Incomplete right bundle branch block Borderline ECG No previous ECG available for comparison Electronically Signed On 02-23-22 08:06:55 CDT by Ananth Gallo
== END 2022-02-22 19:48 | disposition home or self-care (01) ==
LOC: ER 16:36
DX: R07.9 Chest pain, unspecified (principal); R00.2 Palpitations; I10 Essential (primary) hypertension; Z88.2 Allergy status to sulfonamides; Z88.5 Allergy status to narcotic agent
CPT/HCPCS: 36415; 71045; 80048; 83735; 83880; 84484; 85025; 85610; 93005; 99284

== ENCOUNTER 2025-01-14 08:26 | Emergency (ER) | payer BC, OTHER ==
--- OUTSIDE RECORDS SUMMARY | 2025-01-14 08:29 | XMS REPORT | Continuity of Care Document ---
Author Name Unknown Address [address] [place] [address] [facility] Address [address] [place] [address] Care Team Providers Care Workshop Manager Name Role Phone Pcp, Patient Does Not Have A Primary Care Physic mike Hieu Estrada Attending Clinician Unavailable Capo Roman MD Attending Clinician [phone] Raffi MURRAY, Riaz Attending Clinician Alejandra Mercado DO Attending Clinician [phone] Vianca Burns Attending Clinician [phone] VIANCA CHARLTON Attending Clinician Unavaila Hieu Humphreys Admitting Clinician Unavailable Payers Payer Name Policy Type Policy Number Effective Date Expirati on Date Source [facility] PPO 53 [id number] [facility] Problems Condition Name Condition Details Condition Category Status Onset Date Resolution Date Last Treatment Date Treating Clinician Comments Source BBB (bundle branch block) BBB (bundle branch block) Disease Active 05-31 00:00: 00 [facility] [place] Obesity (BMI 30-39.9) Obesity (BMI 30-39.9) Disease Active 05-31 00:00: 00 [facility] Ascending aorta dilatation Ascending aorta dilatation Disease Active 05-31 00:00: 00 [facility] Primary hypertensi on Primary hypertensi on Disease Active 05-31 00:00: 00 [facility] KAT (obstructi ve sleep apnea) KAT (obstructi ve sleep apnea) Disease Active 05-31 00:00: 00 [facility] Syncope and collapse Syncope and collapse Disease Active 05-31 00:00: 00 [facility] No known active problems No known active problems Disease [facility] [id number] Lumbar spondylosi s Problem [facility] Left rotator cuff syndrome Rotator cuff syndrome of left shoulder Problem [facility] [id number] Lumbar post-zhang ectomy syndrome Problem [facility] Chronic pain syndrome Chronic pain syndrome Problem [facility] Opioid dependence Opioid dependence , continuous Problem [facility] Lumbar radiculopa thy Chronic lumbar radiculopa thy Problem [facility] 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 Problem [facility] Allergies, Adverse Reactions, Alerts Allergy Name Allergy Type Status Severity Reaction(s) Onset Date Inactive Date Treating Clinician Comments Source Morphine Propensi ty to adverse reaction s Active Anaphylaxis 01-22 00:00: 00 [facility] Sulfa Dyne Propensi ty to adverse reaction s Active Unknown - See comments 01-22 00:00: 00 [facility] MORPHINE DRUG INGREDI Active Anaphylaxis 01-22 00:00: 00 [facility] SULFA DYNE DRUG Active Unknown-Cmnt 01-22 00:00: 00 [facility] Social History Social Habit Start Date Stop Date Quantity Comments Source Exposure to SARS-CoV-2 (event) Not sure [facility] of Tobacco Use [facility] Sex Assigned At [facility] Tobacco use and exposure 2024-05-31 00:00:00 2024-05-31 00:00:00 Smokeless tobacco non-user [facility] Alcoholic beverage intake 2024-05-31 00:00:00 2024-05-31 00:00:00 Current drinker of alcohol (finding) [facility] History of Social function 2024-05-31 00:00:00 2024-05-31 00:00:00 [facility] Smoking Status Start Date Stop Date Source Never Smoker Mona pham Ex-smoker 2024-05-31 00:00:00 2024-05-31 00:00:00 [facility] Unknown if [facility] Medications Ordered Medication Name Filled Medication Name Start Date Stop Date Current Medication? Ordering Clinician Indication Dosage Frequency Signature (SIG) Comments Components Source HYDROcodone -Acetaminop hen 10-325 MG HYDROcodone -Acetaminop hen 10-325 MG 12-25 00:00: 00 No 1{table t_as_ne eded} BID HYDROcodon e-Acetamin ophen 10-325 MG amLODIPine 10 mg tablet 9-11 15:22: 37 Yes 10mg Take 1 tablet by mouth in the morning. [facility] budesonide- formoteroL (SYMBICORT) 160-4.5 mcg/actuati on inhaler 06-24 00:00: 00 Yes [id number] 2{puff} Inhale 2 Puffs in the morning and 2 Puffs in the evening. [facility] clindamycin (CLEOCIN) injection 600 mg 01-23 03:15: 00 01-23 02:26 :00 No 600mg 600 mg, IV Piggyback, ONCE, 1 dose, Mon01/22/21 at 2215, THUY
Re ason for Anti-Infec tive: Documented Infection< br>Documen domingo Infection Site: Skin / Soft Tissue
Duration of Therapy: 7 days
Re stricted use approved by: ED PROVIDER<b r>Indicati on for Clindamyci n use: abscess [facility] ondansetron (ZOFRAN (PF)) injection 4 mg 01-23 03:00: 00 01-23 01:51 :00 No 4mg 4 mg, Slow IV Push, ONCE, 1 dose, Mon01/22/21 at 2200, THUY [facility] FENTanyl PF (SUBLIMAZE (PF)) injection 50 mcg 01-23 01:51: 00 01-23 01:51 :00 No 50ug 50 mcg, Slow IV Push, ONCE, 1 dose, Mon01/22/21 at 2100, STAT [facility] iohexol (OMNIPAQUE 350 BULK-150 mL) injection 120 mL 01-23 01:15: 00 01-23 00:52 :00 No [id number] 120mL 120 mL, Intravenou s, ONCE, 1 dose, Mon01/22/21 at 2015, Routine [facility] acetaminoph en (TYLENOL) tablet 1,000 mg 01-23 00:45: 00 01-23 00:04 :00 No 1000mg 1,000 mg, Oral, ONCE, 1 dose, Mon01/22/21 at 1945, Routine [facility] acetaminoph en-codeine 300-30 mg tablet 01-22 00:00: 00 07-17 00:00 :00 No [id number] 1{tbl} Take 1 tablet by mouth every 4 (four) hours as needed for Pain (scale 7-10). Indication s: acute pain [facility] clindamycin 300 mg capsule 01-22 00:00: 00 01-30 04:59 :00 No [id number] 300mg Take 1 capsule by mouth 4 (four) times daily for 7 days. [facility] lisinopriL 40 mg tablet 11-06 00:00: 00 Yes 40mg Take 1 tablet by mouth in the morning. [facility] zolpidem 10 mg tablet 11-06 00:00: 00 Yes 10mg Take 1 tablet by mouth at bedtime. [facility] pantoprazol e (PROTONIX) 40 mg EC tablet 11-06 00:00: 00 Yes 40mg Take 1 tablet by mouth in the morning. [facility] HYDROcodone -acetaminop hen 10-325 mg tablet 11-06 00:00: 00 Yes 1{tbl} Take 1 tablet by mouth every 6 (six) hours as needed. [facility] Escitalopra m Oxalate 5 MG Escitalopra m Oxalate 5 MG No Escitalopr am Oxalate 5 MG NIFEdipine ER Osmotic Release 60 MG NIFEdipine ER Osmotic Release 60 MG No NIFEdipine ER Osmotic Release 60 MG Vital Signs Vital Name Observation Time Observation Value Comments S ource Heart rate 2024-07-17 20:25:00 70 /[facility] Res[facility] 2024-07-17 20:25:00 18 /min [facility] Body height 2024-07-17 20:25:00 185.4 cm [facility] Body weight 2024-07-17 20:25:00 116.529 kg [facility] BMI 2024-07-17 20:25:00 33.89 kg/m2 [facility] Oxygen saturation in Arterial blood by Pulse oximetry 2024-07-17 20:25:00 95 /min [facility] Systolic blood pressure 2024-07-17 20:25:00 128 mm[Hg] [facility] Diastolic blood pressure 2024-07-17 20:25:00 77 mm[Hg] [facility] height 2024-07-11 15:15:00 73 [in_i] [facility] 2024-07-11 15:15:00 115.67 kg [facility] bmi 2024-07-11 15:15:00 33.64 kg/m2 Jovita r [facility] heart rate 2024-07-11 15:15:00 74 /min [facility] blood pressure systolic 2024-07-11 15:15:00 131 mm[Hg] [facility] blood pressure diastolic 2024-07-11 15:15:00 83 mm[Hg] [facility] Systolic blood pressure 2024-06-24 18:45:00 138 mm[Hg] [facility] Diastolic blood pressure 2024-06-24 18:45:00 88 mm[Hg] [facility] Heart rate 2024-06-24 18:45:00 71 /min [facility] Respiratory rate 2024-06-24 18:45:00 18 /min [facility] Body height 2024-06-24 18:45:00 188 cm [facility] Body weight 2024-06-24 18:45:00 118.502 kg [facility] BMI 2024-06-24 18:45:00 33.54 kg/m2 [facility] Oxygen saturation in Arterial blood by Pulse oximetry 2024-06-24 18:45:00 94 /min [facility] Systolic blood pressure 2024-05-31 19:21:00 151 mm[Hg] [facility] Diastolic blood pressure 2024-05-31 19:21:00 94 mm[Hg] [facility] Heart rate 2024-05-31 19:21:00 59 /min Un[facility] Body temperature 2024-05-31 19:21:00 36.67 Maureen [facility] Body height 2024-05-31 19:21:00 185.4 cm [facility] Body weight 2024-05-31 19:21:00 116.711 kg [facility] BMI 2024-05-31 19:21:00 33.95 kg/m2 [facility] Oxygen saturation in Arterial blood by Pulse oximetry 2024-05-31 19:21:00 95 /min [facility] height 2024-05-29 15:15:00 73 [in_i] [facility] weight-kg 2024-05-29 15:15:00 115.67 kg [facility] bmi 2024-05-29 15:15:00 33.64 kg/m2 Jovita r [facility] heart rate 2024-05-29 15:15:00 80 /min [facility] blood pressure systolic 2024-05-29 15:15:00 125 mm[Hg] [facility] blood pressure diastolic 2024-05-29 15:15:00 74 mm[Hg] [facility] Systolic blood pressure 2021-01-23 01:00:00 124 mm[Hg] [facility] Diastolic blood pressure 2021-01-23 01:00:00 68 mm[Hg] [facility] Heart rate 2021-01-23 01:00:00 81 /min [facility] Respiratory rate 2021-01-23 01:00:00 17 /min [facility] Oxygen saturation in Arterial blood by Pulse oximetry 2021-01-23 01:00:00 98 /min [facility] Body temperature 2021-01-22 23:14:00 36.72 Maureen [facility] Body weight 2021-01-22 23:14:00 102.513 kg [facility] Systolic blood pressure 2021-01-23 01:00:00 124 mm[Hg] [facility] Diastolic blood pressure 2021-01-23 01:00:00 68 mm[Hg] [facility] Heart rate 2021-01-23 01:00:00 81 /min [facility] Respiratory rate 2021-01-23 01:00:00 17 /min [facility] Oxygen saturation in Arterial blood by Pulse oximetry 2021-01-23 01:00:00 98 /min [facility] Body temperature 2021-01-22 23:14:00 36.72 Maureen [facility] Body weight 2021-01-22 23:14:00 102.513 kg [facility] Procedures Procedure Date / Time Performed Performing Clinicia n Source CT LOW DOSE LUNG NODULE 2024-07-02 21:13:27 Alejandra Mercado [facility] HB ECG ROUTINE & RHYTHM STRIP 2024-05-31 19:24:24 Riaz Nugent [facility] INCISION AND DRAINAGE 2021-01-23 02:15:00 Augusto Charlton [facility] CT PELVIS W CONTRAST 2021-01-23 01:05:28 David Charlton [facility] BASIC METABOLIC PANEL (NA, K, CL, CO2, GLUCOSE, BUN, CREATININE, CA) 2021-01-23 00:04:00 Vianca Charlton [facility] CBC WITH DIFF 2021-01-23 00:04:00 Vianca Charlton [facility] NOTICE OF PRIVACY PRACTICES 2021-01-22 23:12:11 Doctor Unassigned, [place] [facility] CONSENT/REFUSAL FOR DIAGNOSIS AND TREATMENT 2021-01-22 23:10:07 Doctor Unassigned, [place] [facility] CONSENT/REFUSAL FOR DIAGNOSIS AND TREATMENT 2021-01-22 23:10:06 Doctor Unassigned, [place] [facility] Encounters Start Date/Time End Date/Time Encounter Type Admission Type Attending [facility] Facility Care Department Encounter ID Source 2025-01-03 09:26:00 Outpatient Michelmarilu Hieu [facility] [id number] [facility] 2024-05-31 14:15:00 Outpatient Rob Estradahen [facility] [id number] [facility] 2024-05-29 15:00:01 Outpatient Rob Estradahen [facility] [id number] [facility] 2024-09-25 00:00:00 2024-09-25 00:00:00 (WEB) CLS CLS [id number] [facility] 2024-08-21 00:00:00 2024-08-21 00:00:00 (WEB) CLS CLS [id number] [facility] 2024-07-25 00:00:00 2024-07-25 00:00:00 (WEB) CLS CLS [id number] [facility] 2024-07-22 00:00:00 2024-07-22 00:00:00 (WEB) CLS CLS [id number] [facility] 2024-07-17 15:00:00 2024-07-17 15:43:37 Office Visit Al Capo Diaz [facility] [id number] [id number] [id number] [facility] 2024-07-15 00:00:00 2024-07-15 10:31:05 Telephone Riaz Nugent [facility] [id number] 350.1.13.10 [id number] [id number] [facility] 2024-07-11 00:00:00 2024-07-11 00:00:00 Office Visit- Est Pt.- Level 4 CLS CLS [id number] Mona giarrd 2024-07-02 15:39:23 2024-07-02 23:59:00 Hospital Encounter Alejandra Mercado [facility] [id number] 350.1.13.10 4.2.7.2.686 [id number] [facility] 2024-06-28 00:00:00 2024-06-28 00:00:00 (Pain Mgmt) Pain Mgmt Procedures [facility] [id number] Mona girard 2024-06-24 14:00:00 2024-06-24 14:19:04 Office Visit Alejandra Mercado [facility] [id number] 350.1.13.10 [id number] [id number] [facility] 2024-06-18 00:00:00 2024-06-18 00:00:00 (WEB) [facility] [id number] Mona girard 2024-05-31 14:00:00 2024-05-31 15:09:40 Office Visit RaffiRiaz [facility] [id number] 350.1.13.10 4.2.7.2.686 [id number] [facility] 2024-05-31 00:00:00 2024-05-31 00:00:00 (TEL) [facility] [id number] Mona girard 2024-05-29 00:00:00 2024-05-29 00:00:00 Office Visit- Est Pt.- Level 4 [facility] [id number] Mona girard 2021-01-22 18:16:00 2021-01-22 22:10:00 Emergency Vianca Charlton [facility] [id number] 350.1.13.10 4.2.7.2.686 [id number] 2021-01-22 18:16:00 2021-01-22 22:10:00 Emergency Ibtreasure, Folusho F [facility] [id number] 350.1.13.10 4.2.7.2.686 [id number] [facility] 2021-01-22 18:16:00 2021-01-22 18:16:00 Emergency X VIANCA CHARLTON [facility] ERT [id number] [facility] Results Test Description Test Time Test Comments Results Resul t Comments Source CT LUNG NODULE 2024-06-07 8 17:49:10 HISTORY: History of lung nodules, multiple. TECHNIQUE: 64-Multidetector noncontrast enhanced CT of the chest isobtained. FINDINGS: No prior study available for comparison. LUNG NODULES: Series #9. RIGHT LUN mm (#9), 2 mm (#77), 4 mm (#80), 3 mm (#106), 4.5 mm (#129),3 mm (#138). LEFT LUNG: Ill-defined 3 mm (#102), 5 mm (#137), 5 mm (#137), ill-definedincreased density without a discrete nodule in the lingular segment (#141). No focal lesions are seen in the thyroid gland. Trachea and centralbronchial airways appear normal. No pleural effusion or pericardialeffusion. No significant coronary atherosclerosis. Small amount of air is seen in the thoracic esophagus. No definite hiatalhernia. Numerous subcentimeter lymph nodes are seen in the anterior superiormediastinum, adjacent to the trachea, in the AP window region. Visualized upper abdominal organs are unremarkable. 12 mm nodule in theleft upper abdomen is likely accessory splenule. Constipation noted. No aggressive bone lesions. Degenerative changes are seen in the lowerthoracic spines. Minimal remote fracture deformity seen in the upper plateof T6. CONCLUSIONS: 1. 5 mm or smaller size noncalcified nodules in both lungs. Etiology isunknown, therefore, monitoring requested by follow-up low-dose noncontrastCT chest in one year.2. Abnormal findings in the lingula are likely chronic changes of fibrosis. . Recommendations for Follow-up and Management of Indeterminate Lung Nodules. Nodule ? ? Diameter <= 6 mm ? LOW RISK Patient ?: No follow up needed. ? ? HIGH RISK Patient : Follow up CT at 12 months. ? If unchanged, no additional follow up. HIGH RISK is defined as a history of smoking or other known risk factorsfor lung cancer. LOW RISK is defined as minimal or absent history of smoking or other knownrisk factors. [facility] WITH [id number] 00:21:54* Test Item Value Reference Range Interpretation Comme nts WBC (test code = 6690-2) See_Comment [Automated ScoreBiga ge] The system which generated this result transmitted reference range: 4.20 - 10.70 10*3/?L. The reference range was not used to interpret this result as normal/abnormal. RBC (test code = 789-8) See_Comment [Automated ScoreBiga ge] The system which generated this result transmitted reference range: 4.26 - 5.52 10*6/?L. The reference range was not used to interpret this result as normal/abnormal. HGB (test code = 718-7) 14.6 g/dL 12.2-16.4 HCT (test code = 4544-3) 43.5 % 38.4-49.3 MCV (test code = 787-2) 92.6 fL 81.7-95.6 MCH (test code = 785-6) 31.1 pg 26.1-32.7 MCHC (test code = 786-4) 33.6 g/dL 31.2-35.0 RDW-SD (test code = 61044-6) 44.8 fL 38.5-51.6 RDW-CV (test code = 788-0) 13.1 % 12.1-15.4 PLT (test code = 777-3) See_Comment [Automated ScoreBiga ge] The system which generated this result transmitted reference range: 150 - 328 10*3/?L. The reference range was not used to interpret this result as normal/abnormal. MPV (test code = 92273-4) 10.4 fL 9.8-13.0 NRBC/100 WBC (test code = 2983402605) See_Comment [Automated [employer] ssage] The system which generated this result transmitted reference range: 0.0 - 10.0 /100 WBCs. The reference range was not used to interpret this result as normal/abnormal. NRBC x10^3 (test code = 5180349071) <0.01 See_Comment [Automated messa ge] The system which generated this result transmitted reference range: 10*3/?L. The reference range was not used to interpret this result as normal/abnormal. GRAN MAT (NEUT) % (test code = 770-8) 70.1 % IMM GRAN % (test code = 3256106586) 0.50 % LYMPH % (test code = 736-9) 16.0 % MONO % (test code = 5905-5) 12.2 % EOS % (test code = 713-8) 0.9 % BASO % (test code = 706-2) 0.3 % GRAN MAT x10^3(ANC) (test code = 8899347512) 7.11 10*3/uL 1.99-6.95 H IMM GRAN x10^3 (test code = 9912649911) 0.05 10*3/uL 0.00-0.06 LYMPH x10^3 (test code = 731-0) 1.62 10*3/uL 1.09-3.23 MONO x10^3 (test code = 742-7) 1.24 10*3/uL 0.36-1.02 H EOS x10^3 (test code = 711-2) 0.09 10*3/uL 0.06-0.53 BASO x10^3 (test code = 704-7) 0.03 10*3/uL 0.01-0.09 Lab Interpretation (test code = 44883-9) Abnormal [facility] Notes Date/Time Note Provider Source 2024-07-15 10:25:20 Received medical records from [place], placed in DR. Nugent's folder for review. Thank you. Inna Leal MA [facility]
[2025-01-14] MEDS ORDERED: dexAMETHasone 10 MG/ML VIAL ONE (09:21)
[2025-01-14] MEDS ORDERED: NA CHLORIDE 0.9% 1,000 ML ONE (09:21)
[2025-01-14] MEDS ORDERED: METOCLOPRAMIDE 10 MG/2mL INJ ONE (09:21)
[2025-01-14 09:32] LABS: Influenza A Ag Negative; Influenza B Ag Negative
[2025-01-14 09:33] LABS: SARS-CoV-2 Antigen Rapid Res Positive (Negative)
[2025-01-14 09:47] LABS: Absolute Eosinophils 0.1 K/uL (0-0.5); Absolute Lymphocytes (CBC) 0.5 K/uL (0.7-4.9); Absolute Monocytes 1.2 K/uL (0.1-1.3); Absolute Neutrophil 5.1 K/uL (1.8-8.0); Basophils % 0.4 % (0-1.3); Eosinophils % 1.5 % (0-4.4); Hematocrit 44.5 % (39.6-49.0); Hemoglobin 15.3 g/dL (13.6-17.9); MCH 31.5 pg (27.0-35.0); MCHC 34.5 g/dL (32.0-36.0); MCV 91.2 fL (80-100); Monocytes % 16.8 % (3.3-12.3); Neutrophils % 74.3 % (41.7-73.7); Platelets 236 thou/uL (152-406); RBC Red Blood Cell Count 4.87 M/uL (4.33-5.43); Red Cell Distribution Width 13.9 % (12.1-15.2)
[2025-01-14 10:00] LABS: Albumin 3.8 g/dL (3.4-5.0); Albumin/Globulin Ratio 1.2 (1.1-1.8); Anion Gap 8.2 mEq/L (5.0-15.0); Bilirubin Direct 0.2 mg/dL (0-0.2); Bilirubin Indirect, Calculated 0.5 mg/dL (0.2-0.8); Bilirubin Total 0.7 mg/dL (0.2-1.0); Globulin 3.1 g/dL (2.3-3.5); Potassium 4.2 mEq/L (3.5-5.1); Protein, Total 6.9 g/dL (6.4-8.2)
--- NOTE | 2025-01-14 10:47 | RAD REPORT ---
EXAM: CT Head Brain Wo Cont HISTORY: headache, head injury COMPARISON: None TECHNIQUE: Multiple contiguous axial images were obtained for a CT of the brain without contrast. Sag ittal and coronal reformats were performed. One or more of the following dose reduction techniques were used: Automated exposure control, adjus tment of the mA and kV according to patient size, and iterative reconstruction. Unless otherwise specified, incidental findings do not require dedicated imaging follow-up. FINDINGS: No evidence of hydrocephalus, intracranial hemorrhage, or extra-axial fluid collection. The brain is normal in morphology. The calvarium is intact. Mild scattered paranasal sinus mucosal thickening. Mastoid air cells are ess entially clear. IMPRESSION: No evidence of acute intracranial abnormality.
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
[2025-01-14] MEDS ORDERED: KETOROLAC 30 MG/ML INJ ONE (10:57)
[2025-01-14 11:24] VITALS: BP 124/75; TEMP 98.4; O2SAT 99
== END 2025-01-14 11:16 | disposition home or self-care (01) ==
LOC: ER 08:26
DX: S06.0X0A Concussion without loss of consciousness, initial encounter (principal); U07.1 COVID-19
CPT/HCPCS: 96361; 85025; 80048; 36415; 80076; 83690; 70450; 96375; 96374; 99284; 87428; J2765; J1100; J7030